=== PATIENT | female | born 1995 | race African-American/Black ===

== ENCOUNTER 2017-01-12 17:34 | Emergency (ER) | payer MEDICAID ==
[~2017-01-12] VITALS: Ht 157.5 cm; Wt 85.8 kg
[2017-01-12] MEDS ORDERED: IBUPROFEN 200 MG TABLET PO ONE (18:00)
[2017-01-12] MEDS ORDERED: CYCLOBENZAPRINE 10 MG TABLET PO ONE (18:00)
[2017-01-12] MEDS ORDERED: IBUPROFEN 200 MG TABLET ONE (18:22)
[2017-01-12] MEDS ORDERED: CYCLOBENZAPRINE 10 MG TABLET ONE (18:23)
[2017-01-12 19:17] VITALS: BP 112/68
[2017-01-12 19:22] LABS: BLOOD UREA NITROGEN 15 mg/dL (7-18)
[2017-01-12 19:27] LABS: ASPARTATE AMINO TRANSFERASE 15 U/L (15-37)
== END 2017-01-12 20:52 | disposition left against medical advice (07) ==
LOC: ED 19:37
DX: R10.9 Unspecified abdominal pain (principal)
CPT/HCPCS: 36415; 80053; 84703; 85025; 99284